=== PATIENT | male | born 1970 | race Two or more races ===

== ENCOUNTER 2024-11-13 13:37 | Emergency (ER) | payer BC ==
[~2024-11-13] VITALS: Ht 185.4 cm; Wt 68.0 kg
[2024-11-13 14:20] LABS: PLATELET COUNT (AUTO) 204 K/uL (150-450); RED BLOOD CELL COUNT(AUTO) 5.55 MIL/uL (4.5-6.0); RED CELL DISTRIBUTION WIDTH 13.6 % (11.5-15.0); WHITE BLOOD COUNT (AUTO) 4.9 K/uL (4.3-11.0)
[2024-11-13 14:29] LABS: CALCIUM, SERUM 9.1 mg/dL (8.5-10.1); CREATININE 0.7 mg/dL (0.6-1.3); SODIUM SERUM 141 mmol/L (136-145); UREA NITROGEN, BLOOD 16 mg/dL (7-18)
[2024-11-13 14:39] LABS: ASPARTATE AMINOTRANSFERASE 22.0 U/L (15-37); TOTAL PROTEIN, SERUM 8.0 g/dL (6.4-8.2)
[2024-11-13 14:43] LABS: NT-PRO BNP 392 pg/mL (0-125)
[2024-11-13] MEDS ORDERED: ACETAMINOPHEN ES 500 MG TABLET ONE (15:02)
[2024-11-13] MEDS: ACETAMINOPHEN 325 MG TABLET PO ONE (15:06)
[2024-11-13 17:47] VITALS: BP 118/82; TEMP 98.2; O2SAT 99
== END 2024-11-13 17:48 | disposition home or self-care (01) ==
LOC: ER 13:40
DX: R07.2 Precordial pain (principal); F17.200 Nicotine dependence, unspecified, uncomplicated; I50.9 Heart failure, unspecified; Z86.79 Personal history of other diseases of the circulatory system
CPT/HCPCS: 36415; 71045-TC; 80048-TC; 80076-TC; 83880; 84484-TC; 85025-TC